=== PATIENT | female | born 1950 | race Caucasian/White ===

== ENCOUNTER 2023-09-19 09:55 | Inpatient (IN) | payer MEDICARE ==
[2023-09-19] VITALS (21 sets, daily range): BP systolic 108–154; BP diastolic 45–105; PULSE 66–103; RESP 10–37
[~2023-09-19] VITALS: Ht 167.6 cm; Wt 64.9 kg
[2023-09-19] MEDS ORDERED: IOHEXOL-350 75 ML VIAL IV ONE ×2 (10:01→10:49)
[2023-09-19] MEDS ORDERED: LIDOCAINE HCL 400MG/20ML VIAL ONE (10:01)
[2023-09-19] MEDS ORDERED: NITROGLYCERIN 50MG VIAL ONE (10:02)
[2023-09-19] MEDS ORDERED: VERAPAMIL HCL 2.5 MG/ML VIAL ONE (10:02)
[2023-09-19] MEDS ORDERED: HEPARIN 10,000 UNIT/10ML (1,000 UNIT/ML) VIAL ONE (10:02)
[2023-09-19] MEDS ORDERED: NICARDIPINE 25MG INJ IV ONE (10:02)
[2023-09-19] MEDS ORDERED: ATROPINE 1MG SYG IVP ONE (10:06)
[2023-09-19] MEDS ORDERED: FENTANYL CITRATE PF 50 MCG/1 ML 2ML VIAL ONE (10:08)
[2023-09-19] MEDS ORDERED: DOPAMINE HCL 400 MG/D5%-WATER 0 ML IV ONE (10:08)
[2023-09-19] MEDS ORDERED: MIDAZOLAM HCL 1 MG/ML 2ML VIAL ONE (10:09)
[2023-09-19] MEDS ORDERED: TICAGRELOR 90 MG TABLET ONE (10:12)
[2023-09-19] MEDS ORDERED: ASPIRIN 325MG EC TAB PO ONE (10:13)
[2023-09-19 10:24] LABS: BASOPHILS # (AUTO) 0.05 K/uL (0.00-0.20); BASOPHILS % (AUTO) 0.4 % (0.0-5.0); EOSINOPHILS # (AUTO) 0.14 K/uL (0.00-0.70); HEMATOCRIT 39.4 % (36-48); IMMATURE GRANULOCYTE ABSOLUTE 0.09 K/uL (0-1); LYMPHOCYTES # (AUTO) 2.9 K/uL (1.0-4.8); LYMPHOCYTES % (AUTO) 20.4 % (21.0-51.0); MEAN CORPUSCULAR HEMOGLOBIN 29.7 pg (27.0-33.0); MEAN CORPUSCULAR VOLUME 90.2 fL (79-99); MONOCYTES % (AUTO) 6.7 % (3.0-13.0); NEUTROPHILS # (AUTO) 10.1 K/uL (1.8-7.7); NEUTROPHILS % (AUTO) 70.9 % (40.0-77.0); PLATELET COUNT (AUTO) 348 K/uL (130-400); RED BLOOD CELL COUNT(AUTO) 4.37 MIL/uL (4.00-5.50); RED CELL DISTRIBUTION WIDTH 13.2 % (11.0-15.5); WHITE BLOOD COUNT (AUTO) 14.2 K/uL (4.8-10.8)
[2023-09-19 10:40] LABS: ALBUMIN 3.3 g/dL (3.5-5.0); BILIRUBIN,TOTAL 0.5 mg/dL (0.2-1.0); CREATININE 0.8 mg/dL (0.5-1.5); POTASSIUM 4.1 mmol/L (3.5-5.1); TOTAL PROTEIN, SERUM 8.2 g/dL (6.0-8.3)
[2023-09-19 10:51] LABS: INR <= 0.93 (0.85-1.15); PROTHROMBIN TIME 10.3 SEC (9.6-11.6)
[2023-09-19 10:52] LABS: PARTIAL THROMBOPLASTIN TIME 24.7 SEC (26.3-35.5)
[2023-09-19 10:59] LABS: B-TYPE NATRIURETIC PEPTIDE 715 pg/mL (0-100)
[2023-09-19] MEDS ORDERED: EPTIFIBATIDE 2 MG/ML 10 ML VIAL IVP ONE ×2 (11:11→11:22)
[2023-09-19] MEDS ORDERED: EPTIFIBATIDE 75MG/100ML BOTTLE 100 ML IV ONE (11:11)
[2023-09-19] MEDS ORDERED: DOCUSATE SODIUM 100 MG CAP PO PRN (11:30)
[2023-09-19] MEDS: INSULIN HUMULIN R 100 UNIT/ML 3ML SQ SCH (11:30)
[2023-09-19] MEDS ORDERED: POLYETHYLENE GLYCOL 3350 17 GM POWD.PACK PO PRN (11:30)
[2023-09-19] MEDS ORDERED: POTASSIUM CHLORIDE 10% ELIXIR 20 MEQ/15 ML UDCUP PO PRN (11:30)
[2023-09-19] MEDS ORDERED: BENZOCAINE/MENTH/CETYLPYRD CL 1 EACH LOZENGE MM PRN (11:30)
[2023-09-19] MEDS ORDERED: POTASSIUM CHLORIDE 20MEQ/100ML 100 ML IV PRN ×2 (11:30)
[2023-09-19] MEDS ORDERED: DiphenhydrAMINE HCL 50 MG/ML VIAL IV PRN (11:30)
[2023-09-19] MEDS ORDERED: MAG/ALUM/SIMETH 30 ML UDCUP PO PRN (11:30)
[2023-09-19] MEDS ORDERED: ONDANSETRON 4MG INJ IV PRN (11:30)
[2023-09-19] MEDS ORDERED: ALPRAZOLAM 0.5 MG TABLET PO PRN (11:30)
[2023-09-19] MEDS ORDERED: HYDRALAZINE 25MG TABLET PO PRN (11:30)
[2023-09-19] MEDS ORDERED: ACETAMINOPHEN 325 MG TAB PO PRN (11:30)
[2023-09-19] MEDS ORDERED: LACTULOSE 20 GM/30 ML UDCUP PO PRN (11:30)
[2023-09-19] MEDS ORDERED: GUAIFENESIN SUGAR-FREE 100 MG/5 ML UDCUP PO PRN (11:30)
[2023-09-19] MEDS ORDERED: DIPHENHYDRAMINE HCL 25 MG CAPSULE PO PRN (11:30)
[2023-09-19] MEDS ORDERED: NITROGLYCERIN 0.4 MG SL TAB SL PRN (11:30)
[2023-09-19] MEDS ORDERED: GUAIFENESIN-DM 200/20 MG 10 ML PO PRN (11:30)
[2023-09-19] MEDS: 0.9%NACL 1000ML 1,000 ML IV SCH (12:00)
[2023-09-19] MEDS: ACETAMINOPHEN 325 MG TAB PO PRN (16:02)
[2023-09-19] MEDS ORDERED: PROP40SO PO (17:06)
[2023-09-19] MEDS: ATORVASTATIN 40 MG TABLET PO SCH (20:22)
[2023-09-19] MEDS: ZOLPIDEM TARTRATE 5 MG TAB PO PRN (20:22)
[2023-09-19] MEDS: FAMOTIDINE 20MG VIAL IV SCH (20:23)
[2023-09-19] MEDS: TICAGRELOR 90 MG TABLET PO SCH (20:23)
[2023-09-20] VITALS (31 sets, daily range): BP systolic 91–130; BP diastolic 49–80; PULSE 82–102; RESP 13–24; O2SAT 94–96
[2023-09-20 04:08] LABS: BASOPHILS # (AUTO) 0.03 K/uL (0.00-0.20); BASOPHILS % (AUTO) 0.3 % (0.0-5.0); EOSINOPHILS # (AUTO) 0.05 K/uL (0.00-0.70); EOSINOPHILS % (AUTO) 0.6 % (0.0-8.0); HEMATOCRIT 33.7 % (36-48); IMMATURE GRANULOCYTE ABSOLUTE 0.03 K/uL (0-1); LYMPHOCYTES # (AUTO) 2.1 K/uL (1.0-4.8); LYMPHOCYTES % (AUTO) 24.2 % (21.0-51.0); MEAN CORPUSCULAR HEMOGLOBIN 29.1 pg (27.0-33.0); MEAN CORPUSCULAR HGB CONC 32.3 g/dL (32.0-36.0); MEAN CORPUSCULAR VOLUME 89.9 fL (79-99); MONOCYTES # (AUTO) 0.8 K/uL (0.1-1.0); MONOCYTES % (AUTO) 8.8 % (3.0-13.0); NEUTROPHILS # (AUTO) 5.7 K/uL (1.8-7.7); NEUTROPHILS % (AUTO) 65.8 % (40.0-77.0); PLATELET COUNT (AUTO) 257 K/uL (130-400); RED BLOOD CELL COUNT(AUTO) 3.75 MIL/uL (4.00-5.50); RED CELL DISTRIBUTION WIDTH 13.3 % (11.0-15.5); WHITE BLOOD COUNT (AUTO) 8.6 K/uL (4.8-10.8)
[2023-09-20 04:31] LABS: ALBUMIN 2.6 g/dL (3.5-5.0); BILIRUBIN,TOTAL 0.4 mg/dL (0.2-1.0); CREATININE 0.7 mg/dL (0.5-1.5); MAGNESIUM 1.8 mg/dL (1.80-2.40); POTASSIUM 3.6 mmol/L (3.5-5.1); TOTAL PROTEIN, SERUM 6.9 g/dL (6.0-8.3)
[2023-09-20] MEDS: MAGNESIUM 2GM PREMIX 50ML 50 ML IV PRN (05:55)
[2023-09-20] MEDS: KCL 20 MEQ ERTAB PO PRN (05:56)
[2023-09-20] MEDS: ASPIRIN 81MG CHEW TAB PO SCH (08:09)
[2023-09-20] MEDS: METOPROLOL SUCCINATE 25 MG TAB.SR.24H PO ONE (08:09)
[2023-09-20] MEDS: LISINOPRIL 2.5 MG TABLET PO ONE (11:07)
[2023-09-20 11:20] LABS: CHOLESTEROL 189 mg/dL (<200); HDL CHOLESTEROL 65 mg/dL (35-85); LDL DIRECT 112 mg/dL (0-99); TRIGLYCERIDES 83 mg/dL (30-200)
[2023-09-20] MEDS: PROPRANOLOL HCL 20 MG TAB PO SCH (20:32)
[2023-09-21 03:40] VITALS: BP 128/81; PULSE 88; RESP 18
[2023-09-21 08:00] VITALS: BP 114/76; PULSE 101; RESP 20
[2023-09-21 09:02] VITALS: O2SAT 97
[2023-09-21] MEDS: LISINOPRIL 2.5 MG TABLET PO SCH (09:09)
[2023-09-21] MEDS ORDERED: ASPI-1005 PO (09:13)
[2023-09-21] MEDS ORDERED: TICA90TA PO (09:13)
[2023-09-21] MEDS ORDERED: ATOR40TA69 PO (09:13)
[2023-09-21] MEDS ORDERED: LISI2.5T13 PO (09:13)
== END 2023-09-21 10:34 | disposition home or self-care (01) | DRG 321 ==
LOC: EDH 12:09 → EDHIP 12:10 → 2BH 12:11
PROVIDERS: ADMIT Internal Medicine; ATTEND Internal Medicine
PROC: 027035Z Dilation of Coronary Artery, One Artery with Two Drug-eluting Intraluminal Devices, Percutaneous Approach (ICD-10-PCS; principal; 2023-09-19)
PROC: 4A023N7 Measurement of Cardiac Sampling and Pressure, Left Heart, Percutaneous Approach (ICD-10-PCS; 2023-09-19)
PROC: B2111ZZ Fluoroscopy of Multiple Coronary Arteries using Low Osmolar Contrast (ICD-10-PCS; 2023-09-19)
PROC: B2151ZZ Fluoroscopy of Left Heart using Low Osmolar Contrast (ICD-10-PCS; 2023-09-19)
DX: I21.09 ST elevation (STEMI) myocardial infarction involving other coronary artery of anterior wall (principal); I50.31 Acute diastolic (congestive) heart failure; E44.1 Mild protein-calorie malnutrition; I42.9 Cardiomyopathy, unspecified; I24.9 Acute ischemic heart disease, unspecified; D72.829 Elevated white blood cell count, unspecified; G25.0 Essential tremor; E78.5 Hyperlipidemia, unspecified; I25.10 Atherosclerotic heart disease of native coronary artery without angina pectoris; Z95.5 Presence of coronary angioplasty implant and graft; Z68.23 Body mass index [BMI] 23.0-23.9, adult
CPT/HCPCS: 36415; 71045; 80053; 80061; 82948; 83735; 83880; 84484; 85025; 85347; 85610; 85730; 92978; 93005; 93306; 93571; 99156; 99157; C1760; C1887; C1894; C9600; C9606; G0378; J0461; J1265; J1327; J1644; J2250; J3010; J3475; J3490; Q9967; C1725; C1753; C1769; C1874

== ENCOUNTER → 2024-01-13 | Outpatient (CLI) | payer MEDICARE ==
[~2024-01-13] MED LIST: ASPI-1005 PO; ATOR40TA69 PO; LISI2.5T13 PO; PROP40SO PO; TICA90TA PO
== END | disposition home or self-care (01) ==
LOC: SHCH 09:47
PROVIDERS: ATTEND Internal Medicine
DX: I08.3 Combined rheumatic disorders of mitral, aortic and tricuspid valves (principal); I42.9 Cardiomyopathy, unspecified
CPT/HCPCS: 93306; 93356

== ENCOUNTER → 2025-01-15 | Outpatient (CLI) | payer MEDICARE ==
--- NOTE | 2025-01-15 12:04 | HMCIMG ---
Double contrast barium enema clinical history: 74-year-old female with history of anemia for workup. 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 There is dextroscoliosis of the lumbar spine with the apex at L3-L4. After placement of a rectal tube a double contrast barium enema was performed. The study demonstrated there is scattered diverticulosis seen throughout the colon with no evidence of diverticulitis. The cecum is visualized. There is a suggestion of a small appendix. There is no reflux of the barium into the terminal ileum. There is no mass or polyp identified. IMPRESSION: Scattered diverticulosis with no evidence of diverticulitis Otherwise the remaining study appears to be normal
== END | disposition home or self-care (01) ==
LOC: RAH 09:41
PROVIDERS: ATTEND Internal Medicine Gastroenterology
DX: K57.30 Diverticulosis of large intestine without perforation or abscess without bleeding (principal); M41.86 Other forms of scoliosis, lumbar region; Z86.0100 Personal history of colon polyps, unspecified
CPT/HCPCS: 74270